=== PATIENT | female | born 1965 | race Caucasian/White ===

== ENCOUNTER 2023-03-10 06:25 | Day surgery (SDC) | payer BC ==
[2023-03-10] MEDS ORDERED: Midazolam 1 MG/ML 2 ML SDV IV ONE (06:26)
[2023-03-10] MEDS ORDERED: Sodium Chloride 0.9% 10 ML Syringe IV ONE (06:26)
[2023-03-10] MEDS ORDERED: fentaNYL 100 MCG/2 ML SDV IV ONE (06:26)
[2023-03-10] MEDS ORDERED: Lactated Ringers 1,000 ML IV PRN (06:45)
[2023-03-10] MEDS ORDERED: Sodium Chloride 0.9% 10 ML Syringe FLUSH PRN (06:45)
[2023-03-10] MEDS ORDERED: acetaZOLAMIDE 500 MG Cap.ER PO ONE (09:00)
== END 2023-03-10 09:23 | disposition home or self-care (01) ==
LOC: FB.SDS 06:25
PROVIDERS: ATTEND Ophthalmology
DX: H25.813 Combined forms of age-related cataract, bilateral (principal); M35.00 Sjogren syndrome, unspecified; H16.223 Keratoconjunctivitis sicca, not specified as Sjogren's, bilateral; H44.23 Degenerative myopia, bilateral; H43.812 Vitreous degeneration, left eye; H35.413 Lattice degeneration of retina, bilateral; I10 Essential (primary) hypertension; E78.5 Hyperlipidemia, unspecified; E03.9 Hypothyroidism, unspecified; F33.1 Major depressive disorder, recurrent, moderate; F41.1 Generalized anxiety disorder; Q85.00 Neurofibromatosis, unspecified; E55.9 Vitamin D deficiency, unspecified; I73.00 Raynaud's syndrome without gangrene; L71.9 Rosacea, unspecified; H61.21 Impacted cerumen, right ear; Z79.890 Hormone replacement therapy; Z79.899 Other long term (current) drug therapy
CPT/HCPCS: 66984; A9270; J2250; J3010; J3490; V2632; 00142

== ENCOUNTER 2023-04-07 06:10 | Day surgery (SDC) | payer BC ==
[2023-04-07] MEDS ORDERED: fentaNYL 100 MCG/2 ML SDV IV ONE (06:11)
[2023-04-07] MEDS ORDERED: Midazolam 1 MG/ML 2 ML SDV IV ONE (06:11)
[2023-04-07] MEDS ORDERED: Lactated Ringers 1,000 ML IV PRN (06:30)
[2023-04-07] MEDS ORDERED: Sodium Chloride 0.9% 10 ML Syringe FLUSH PRN (06:30)
[2023-04-07] MEDS ORDERED: acetaZOLAMIDE 500 MG Cap.ER PO ONE (08:30)
== END 2023-04-07 08:55 | disposition home or self-care (01) ==
LOC: FB.SDS 06:10
PROVIDERS: ATTEND Ophthalmology
DX: H26.9 Unspecified cataract (principal)
CPT/HCPCS: A9270-GY; J2250; J3010; J3490; V2632